=== PATIENT | male | born 1965 | race Caucasian/White ===

== ENCOUNTER → 2018-04-24 | Outpatient (CLI) | payer BC, OTHER ==
[~2018-04-24] MED LIST: AMOX500; CEPH500 PO; CLAR500; IBUP600; OMEP20ER; OXYC20ER; STOOL SOFTENER
== END | disposition home or self-care (01) ==
LOC: LAB 16:09 → LAB SHORT 16:09
DX: N39.0 Urinary tract infection, site not specified (principal)
CPT/HCPCS: 87086